=== PATIENT | female | born 1945 | race Caucasian/White ===

== ENCOUNTER 2017-01-08 22:54 | Inpatient (IN) | payer OTHER ==
[~2017-01-08] VITALS: Ht 154.9 cm; Wt 84.8 kg
[2017-01-09 00:03] LABS: BASOPHIL 0.1 % (0-2); EOSINOPHIL 0 % (0-7); HCT 38.1 % (37.0-47.0); HGB 12.9 g/dl (12.5-16.0); LYMPHOCYTE 3.6 % (15-48); MCH 29.1 pg (25.0-31.0); MCHC 33.9 g/dL (32.0-36.0); MCV 85.8 fL (78.0-100.0); MONOCYTE 8.3 % (0-12); MPV 10.1 fL (6.0-9.5); PLT 273 K/uL (150-400); RBC 4.44 M/uL (4.20-5.40)
[2017-01-09 00:04] LABS: WBC 20.9 K/uL (4.0-10.5)
[2017-01-09 00:06] LABS: INR 1.14 (0.9-1.2); PROTHROMBIN TIME 14.2 SECONDS (11.7-14.0)
[2017-01-09 00:07] LABS: D-DIMER 0.49 ug/mLFEU (0.00-0.41)
[2017-01-09 00:28] LABS: ALBUMIN 3.7 g/dL (3.4-4.8); BILIRUBIN - TOTAL 0.9 mg/dL (0.1-1.0); CREATININE 1.4 mg/dL (0.5-1.0); GLOBULIN (CALCULATION) 2.8 g/dL (2.2-4.2); LACTIC ACID 1.4 mmol/L (0.5-2.2); POTASSIUM 4.3 mmol/L (3.5-5.1); TOTAL PROTEIN 6.5 g/dL (6.4-8.3)
[2017-01-09 00:29] LABS: MYOGLOBIN 102 ng/mL (26-65); TROPONIN T < 0.010 ng/mL
[2017-01-09 02:13] LABS: BILIRUBIN 1+ mg/dL (NEGATIVE); BLOOD 3+ Ery/uL (NEGATIVE); CLARITY CLEAR (CLEAR); COLOR YELLOW (YELLOW); GLUCOSE (U) NORMAL (NORMAL); KETONE (U) TRACE mg/dL (NEGATIVE); LEUKOCYTES 2+ Leu/uL (NEGATIVE); NITRITE NEGATIVE (NEGATIVE); PROTEIN 2+ mg/dL (NEGATIVE); UROBILINOGEN 0.2 mg/dL (0.2-1.0); pH 5.5 (5.0-9.0)
[2017-01-09 02:23] LABS: URINARY WBC TNTC
[2017-01-09 02:24] LABS: BACTERIA 2+
[2017-01-09 05:48] LABS: BASOPHIL 0.1 % (0-2); EOSINOPHIL 0 % (0-7); HCT 35.6 % (37.0-47.0); HGB 12.1 g/dl (12.5-16.0); LYMPHOCYTE 5.4 % (15-48); MCH 29.2 pg (25.0-31.0); MCV 85.8 fL (78.0-100.0); MONOCYTE 6.3 % (0-12); NEUTROPHIL 88.2 % (41-80); PLT 249 K/uL (150-400); RBC 4.15 M/uL (4.20-5.40); RDW 14.9 % (11.5-14.0); WBC 18.1 K/uL (4.0-10.5)
[2017-01-09 06:09] LABS: ALBUMIN 3.5 g/dL (3.4-4.8); BILIRUBIN - TOTAL 0.6 mg/dL (0.1-1.0); CREATININE 1.3 mg/dL (0.5-1.0); POTASSIUM 4.2 mmol/L (3.5-5.1); TOTAL PROTEIN 6.5 g/dL (6.4-8.3)
[2017-01-10 05:44] LABS: HCT 33.7 % (37.0-47.0); HGB 11.3 g/dl (12.5-16.0); MCH 29.1 pg (25.0-31.0); MCHC 33.5 g/dL (32.0-36.0); MCV 86.9 fL (78.0-100.0); MPV 10.4 fL (6.0-9.5); RBC 3.88 M/uL (4.20-5.40); RDW 15.2 % (11.5-14.0)
[2017-01-10 06:00] LABS: CREATININE 1.1 mg/dL (0.5-1.0); POTASSIUM 3.8 mmol/L (3.5-5.1)
[2017-01-10 16:04] LABS: BILIRUBIN NEGATIVE (NEGATIVE); BLOOD NEGATIVE Ery/uL (NEGATIVE); CLARITY CLEAR (CLEAR); COLOR YELLOW (YELLOW); GLUCOSE (U) NORMAL (NORMAL); KETONE (U) NEGATIVE (NEGATIVE); LEUKOCYTES NEGATIVE Leu/uL (NEGATIVE); NITRITE NEGATIVE (NEGATIVE); PROTEIN NEGATIVE (NEGATIVE); SPECIFIC GRAVITY <=1.005 (1.001-1.030); UROBILINOGEN 0.2 mg/dL (0.2-1.0); pH 5.5 (5.0-9.0)
[2017-01-10 16:12] LABS: BACTERIA TRACE; SQUAMOUS EPITHELIAL CELLS RARE
== END 2017-01-10 19:45 | disposition home or self-care (01) | DRG 683 ==
LOC: FER 22:54 → FMS 01-09 02:55
PROVIDERS: Emergency Medicine; ADMIT Internal Medicine
DX: N17.9 Acute kidney failure, unspecified (principal); N39.0 Urinary tract infection, site not specified; J44.9 Chronic obstructive pulmonary disease, unspecified; E87.1 Hypo-osmolality and hyponatremia; E11.9 Type 2 diabetes mellitus without complications; I25.10 Atherosclerotic heart disease of native coronary artery without angina pectoris; K21.9 Gastro-esophageal reflux disease without esophagitis; Z95.1 Presence of aortocoronary bypass graft; E78.5 Hyperlipidemia, unspecified; Z90.710 Acquired absence of both cervix and uterus; Z79.01 Long term (current) use of anticoagulants
CPT/HCPCS: 36415; 70450; 71010; 80048; 80053; 80061; 81001; 82550; 82553; 82962; 83605; 83874; 84484; 85025; 85379; 85610; 85730; 87040; 87088; 93005; C9113; J1956